=== PATIENT | female | born 1955 | race Caucasian/White ===

== ENCOUNTER 2017-01-18 14:24 | Emergency (ER) | payer MEDICARE, OTHER ==
--- NOTE | ~2017-01-18 | ER ---
PATIENT'S NAME: PACO [facility] AGE: 61 Y [address] ROOM: [place] [id number] LOCATION: ED ADMIT DATE: 01/18/2017 ER/Outpatient Report DISCHARGE DATE: 01/18/2017 FAMILY PHYSICIAN: PHYSICIAN, NO ATTENDING PHYSICIAN: Farzana Neville Time of Arrival: 1424 hours. Time Seen: 1427 hours. IDENTIFICATION: A 61-year-old female. CHIEF COMPLAINT: Syncope. HISTORY OF PRESENT ILLNESS: The patient presents with a migraine headache that she has had for the last 45 minutes. She is from [place], here visiting her [id number]. They have been here for approximately 2 weeks. The patient has photophobia. No nausea. A severe headache. She received fentanyl pre-hospital without much relief. She actually did not have a syncopal episode. ALLERGIES: TO TOPAMAX, ANAPROX, ASPIRIN, GABAPENTIN, PENICILLINS, CHLORPHENIRAMINE, AND SULFA. CURRENT MEDICATIONS: 1. Alprazolam 0.25 mg every 8 hours as needed. 2. Benazepril 20 mg daily. 3. Bupropion SR 150 mg, take 450 mg by mouth every day. 4. Calcium 500 mg 2 tablets daily. 5. Clonazepam 1 mg 1-2 tablets at h.s. 6. Cyanocobalamin 500 mcg daily. 7. Aggrenox 200/25 two times daily. 8. Escitalopram 20 mg daily. 9. Estradiol 1.5 mg daily. 10. Folic acid 800 mcg daily. 11. Green tea oral by mouth. 12. [place] p.r.n. 13. Iron 325 mg daily. Magnesium 400 mg 2 times daily. 1. Metoprolol-XL 25 mg 2 tablets at bedtime. 2. Pantoprazole 40 mg daily. 3. Pregabalin 25 mg daily. PATIENT'S NAME: PACO [facility] AGE: 61 Y [address] ROOM: [place] [id number] LOCATION: [facility] ADMIT DATE: 01/18/2017 ER/Outpatient Report DISCHARGE DATE: 01/18/2017 FAMILY PHYSICIAN: PHYSICIAN, NO ATTENDING PHYSICIAN: Farzana Neville MEDICAL PROBLEMS: Tremor, elevated rheumatoid factor, chronic right-sided headaches, insomnia, anxiety, migraine headache, rectal bleed, abdominal pain, hypertension, hyponatremia, lumbar radiculopathy, TIA, right-sided weakness, altered mental status, chronic back pain, narcotic dependency, fibromyalgia, history of CVA, gastroesophageal reflux disease, and weakness. PRIOR SURGERIES: Abdominal surgery. SOCIAL HISTORY: The patient is . Lives in [place], they are here visiting family. Tobacco use, half pack per day for 37 years, quit in 2006. Alcohol use, denies. Drug use, denies. REVIEW OF SYSTEMS: All systems reviewed and negative other than what is noted in the HPI. PHYSICAL EXAMINATION: VITAL SIGNS: Weight 97.3 kg, blood pressure 115/50, pulse 86, respirations 16, temperature 97.2, and saturations 98%. GENERAL: Pleasant female, in obvious distress with a towel over her head. HEENT: Normocephalic, atraumatic. Ears: TMs translucent, both ears. Eyes: Pupils equal and reactive to light and accommodation. Extraocular movements intact. Mouth, no lesions. Pharynx benign. NECK: Supple. No lymphadenopathy. LUNGS: Clear to auscultation. HEART: Regular rate and rhythm. ABDOMEN: Soft, nondistended, and nontender. SKIN: [place], warm, and dry. No lesions or rashes noted. NEURO: The patient is alert and oriented x4. Cranial nerves 2 through 12 grossly intact. Motor strength 5/5 throughout. Sensation is intact to light touch. DIAGNOSTIC DATA: Because this was a severe headache, we did go ahead and get a CT scan of her head, which was negative. She did develop some chest pain under her left breast right on arrival, so EKG and cardiac enzymes were obtained. Chest x- ray, no acute process. Pending Radiology over-read. EKG, normal sinus rhythm at 81 beats per minute. No acute ST elevation or depression. CBC is unremarkable. Chemistry panel: Sodium 143, potassium 4.8, chloride 110, CO2 of 24, BUN 22; creatinine 1.2, creatinine was 1.2 in May of 2014; blood sugar 99. Liver enzymes normal. Magnesium 2.3, CPK 134, CK-MB 1.5, troponin less than 0.040. INR 0.9. CRP 0.74. Sedimentation rate 21. Head CT without contrast, no acute process per Radiology. PATIENT'S NAME: PACO [facility]BB[facility] AGE: 61 Y [address] ROOM: [place] [id number] LOCATION: [facility] ADMIT DATE: 01/18/2017 ER/Outpatient Report DISCHARGE DATE: 01/18/2017 FAMILY PHYSICIAN: PHYSICIAN, NO ATTENDING PHYSICIAN: Farzana Neville EMERGENCY DEPARTMENT COURSE: The patient was given 50 mcg of fentanyl pre-hospital, 25 mcg here with no improvement. She was not nauseous and did not want Zofran. Dilaudid 0.25 mg was given. After that, her blood pressure dropped to 94/50. She was given 500 mL bolus of normal saline. After that, her blood pressure was 70/41. She was given an additional 500 mL bolus and her blood pressure improved to 110s to 120s. She continued to have pain. She was given fentanyl 25 mcg IV, felt much better, and was discharged home. IMPRESSION AND PLAN: 1. Migraine headache. Migraine handout, rest, and fluids. 2. Hypotension secondary to Dilaudid. Follow up with Dr. Park in 1-2 days. Follow up sooner if any problems or concerns. FARZANA NEVILLE MD CAR/modl /[id number] d: 01/19/171955 t: 01/20/17 1427, OUTPATIENT REPORT
[2017-01-18 14:55] LABS: BASOPHIL # 0.1 K/uL (0.0-0.2); BASOPHIL % 0.7 %; EOSINOPHIL # 0.2 K/uL (0.0-0.5); EOSINOPHIL % 2.9 %; HEMATOCRIT 34.1 % (33.0-46.0); HEMOGLOBIN 10.8 g/dL (10.0-15.0); IMMATURE GRANULOCYTE % 0.1 %; LYMPHOCYTE # 2.2 K/uL (0.8-4.0); MCH 30.3 pg (27.0-34.0); MCHC 31.7 gm/dL (32.0-36.5); MCV 95.5 fl (83.0-98.0); MONOCYTE # 0.6 K/uL (0.0-1.0); MONOCYTE % 7.9 %; MPV 11.1 fl (9.4-12.4); NEUTROPHIL % 57.4 %; NRBC % 0 /100WBC (0-0.00); PLATELET COUNT 216 K/uL (150-450); RBC 3.57 M/uL (3.50-5.50); RDW-CV 12.3 % (11.9-14.6); WBC 6.9 K/uL (4.0-11.0)
[2017-01-18 15:13] LABS: INR - (THERAPEUTIC) 0.9 (0.9-1.1); PROTIME 9.8 SECONDS (9.6-11.1); PTT 21 SECONDS (25-32)
[2017-01-18 15:16] LABS: ALK PHOS 62 IU/L (33-138); ALT 22 IU/L (12-78); ANION GAP 13.8 (10.0-19.0); AST 17 IU/L (10-40); BLOOD UREA NITROGEN 22 mg/dL (6-24); CALCIUM 8.6 mg/dL (8.5-10.5); CHLORIDE 110 mMol/L (96-110); CO2 24 mMol/L (22-32); CPK 134 IU/L (21-215); CREATININE 1.2 mg/dL (0.5-1.1); ESTIMATED GFR (MDRD EQUATION) 46; MAGNESIUM 2.3 mg/dL (1.3-2.6); POTASSIUM 4.8 mMol/L (3.7-5.1); SODIUM 143 mMol/L (135-145); TOTAL BILIRUBIN 0.2 mg/dL (0.0-1.5); TOTAL PROTEIN 6.2 g/dL (6.0-8.4)
== END 2017-01-18 19:15 | disposition disaster alternative care site (69) ==
LOC: GMED 14:24
PROVIDERS: Family Medicine
DX: G43.909 Migraine, unspecified, not intractable, without status migrainosus (principal); I95.9 Hypotension, unspecified
CPT/HCPCS: J1170; J2270; J3010; J7050

== ENCOUNTER → 2017-01-18 | Outpatient (CLI) | payer MEDICARE, OTHER | END | disposition disaster alternative care site (69) | LOC: GAMB 14:04 | DX: G43.909 Migraine, unspecified, not intractable, without status migrainosus (principal); Z88.0 Allergy status to penicillin; Z88.2 Allergy status to sulfonamides; Z88.8 Allergy status to other drugs, medicaments and biological substances | CPT/HCPCS: A0425; A0427; J2405; J3010 ==